=== PATIENT | female | born 1995 | race Caucasian/White ===

== ENCOUNTER 2022-08-17 05:28 | Emergency (ER) | payer MEDICAID ==
[~2022-08-17] VITALS: Ht 154.9 cm; Wt 56.7 kg
[2022-08-17 05:30] VITALS: BP_SYST 142
--- NOTE | 2022-08-17 05:30 | NUR ---
Placed in room 8 . Placed on quality assurance monitor final, blood pressure machine and pulse oximeter. To gown for exam. Side rails up. Report given to Latasha PATEL(traveler).
--- NOTE | 2022-08-17 05:32 | NUR ---
ER at bedside examining patient.
--- NOTE | 2022-08-17 05:37 | NUR ---
FUNCTIONAL TESTER AT BEDSIDE.
[2022-08-17] MEDS ORDERED: IPRATROPIUM/ALBUTEROL SULFATE 3 ML AMPUL.NEB (DUONEB) ONE (05:39)
[2022-08-17] MEDS ORDERED: IPRATROPIUM/ALBUTEROL SULFATE 3 ML AMPUL.NEB (DUONEB) INH ONE (05:45)
[2022-08-17] MEDS ORDERED: predniSONE 20 MG TABLET PO ONE (05:45)
[2022-08-17] MEDS ORDERED: PRED50TA PO (06:03)
[2022-08-17] MEDS ORDERED: ALBMDI INH (06:03)
[2022-08-17 06:09] VITALS: BP_SYST 117
--- NOTE | 2022-08-17 06:10 | NUR ---
Patient given written and verbal discharge instructions and verbalizes understanding. ER MD discussed with patient the results and treatment provided. Patient in stable condition. ID arm band removed. Rx of PREDNISONE AND ALBUTEROL given. Patient educated on pain management and to follow up with PMD. Pain Scale 0/10. Opportunity for questions provided and answered.
== END 2022-08-17 06:10 | disposition home or self-care (01) ==
LOC: SED 05:28
DX: J45.901 Unspecified asthma with (acute) exacerbation (principal); R06.02 Shortness of breath; Z79.899 Other long term (current) drug therapy
CPT/HCPCS: 99283; J7512